=== PATIENT | female | born 1980 | race Hispanic/Latino ===

== ENCOUNTER → 2019-10-14 | Outpatient (CLI) | payer OTHER ==
--- NOTE | 2019-10-14 10:55 | NUR ---
MBSS COMPLETED. S/S OF ASPIRATION AT THIS TIME. RECOMMEND REGULAR SOLIDS, THIN LIQUIDS, AND PILLS WHOLE WITH LIQUIDS TOLERATED. CRNP REVIEWED RESULTS AND RECOMMENDATIONS WITH Pt. CRNP RECOMMENDED THE USE OF COMPENSATORY STRATEGIES SUCH SIT UP RIGHT WHILE EATING, STAY UPRIGHT 30 MINUTES AFTER MEALS, AND EXTRA DRY SWALLOWS AFTER EACH BITE/SIP. CRNP EDUCATED Pt ON RISKS AND CONSEQUENCES OF ASPIRATION. ALL QUESTIONS ANSWERED AT THIS TIME. Addendum: 10/14/[address] CHELI GUPTA Amended: Links added.
== END | disposition home or self-care (01) ==
LOC: RAH 10:31
PROVIDERS: ATTEND Internal Medicine Gastroenterology
DX: R13.10 Dysphagia, unspecified (principal)
CPT/HCPCS: 74230; 92611